=== PATIENT | female | born 1995 | race Caucasian/White ===

== ENCOUNTER 2017-02-08 02:04 | Inpatient (IN) | payer OTHER ==
[~2017-02-08] VITALS: Ht 160 cm; Wt 93.0 kg
[2017-02-08 07:31] VITALS: BP 122/83
--- NOTE | 2017-02-08 08:57 | Operative Report ---
Operative/Inv Procedure Report Surgery Date: 02/08/17 Name of Procedure: Primary low flap transverse section via Pfannenstiel skin incision Pre-Operative Diagnosis: Breech term Post-Operative Diagnosis: Same Estimated Blood Loss: 500 Surgeon/Ultrasound Technologist Sonographer: RISSA PETERSON,GUNNAR Govea Anesthesia: block Operative/Procedure Note Note: Procedure note patient was taken the operating room placed prone position after adequate anesthesia patient placed in dorsolithotomy position the vagina from dorsal fashion Sliva was placed patient was returned spine position the abdomen was checked for anesthesia that would be adequate for surgery by pinprick and found to be so the abdomen was prepped and draped so fashion through Pfannenstiel skin incision skin was cut was carried down to rectus fascia which was cut in curvilinear fashion I direction peritoneal cavity was entered high into the abdomen the low blade of the [place] was placed lower and incision the visceral peritoneum of uterus was dissected anteriorly a bladder flap was developed in the lower uterine segment uterus is nicked entered with the back of knife dissected bluntly as well as sharply on since removed from the field the infant was delivered by complete breech extraction the cord was doubly clamped and cut and was handed golf club weigher was waiting delivering to aid in resuscitation placenta was delivered manually noted to be intact was wiped clean with wet dry last insurance free of adherent membranes was oversewn running locking suture was indicated interrupted [id number] hemostasis was apparent intravenous [id number] were used for hemostasis uses returned to abdominal cavity found to be hemostatic the peritoneum was reapproximated using 2 over the fascia was reapproximated to continue sutures #1 skin was reapproximated david at the end the case the counts correct urine was clear mother and were transferred recovery room awake and alert with counts correct Findings: Complete breech male three-vessel cord clear fluid normal tubes and ovaries bilaterally
[2017-02-09 10:04] LABS: ABSOLUTE BASOPHIL COUNT 0 /CUMM (0.0-0.2); ABSOLUTE EOSINOPHIL COUNT 0.1 /CUMM (0.0-0.7); ABSOLUTE MONOCYTE COUNT 0.6 /CUMM (0.10-0.60); BASOPHIL % 0.3 % (0.0-2.0); RED BLOOD CELL CT 3.68 /CUMM (4.20-5.40)
--- NOTE | 2017-02-09 10:07 | PN- Post Delivery/GYN ---
Subjective Subjective: NO COMPLAINTS Objective Last 24 Hrs of Vital Signs/I&O VSS Physical Exam: PLEASANT WF IN NAD ABD SOFT NT INCISION CDI EXT -EDEMA -HOMANS Assessment/Plan Assessment/Plan ASSESS S/P C/P PLAN CONT PPC
[2017-02-09] MEDS ORDERED: IBUPROFEN800 M1 PO (10:08)
[2017-02-09] MEDS ORDERED: PERCOCET 5-3251 EACH PO (10:08)
[2017-02-09 10:11] LABS: ABSOLUTE GRANULOCYTE CT 5.4 /CUMM (1.4-6.5); ABSOLUTE LYMPH COUNT 2.1 /CUMM (1.2-3.4); MEAN CORPUSCULAR HGB CONC 33.1 G/DL (33.0-37.0); MEAN CORPUSCULAR VOLUME 75.6 FL (81.0-99.0); MEAN PLATELET VOLUME 7.9 FL (7.4-10.4); PLATELET COUNT 253 /CUMM (130-400); RBC DISTRIBUTION WIDTH 16.2 % (11.5-14.5); WHITE BLOOD CELL COUNT 8.2 /CUMM (4.8-10.8)
[2017-02-09 10:13] LABS: HEMATOCRIT 27.8 % (37-47)
--- NOTE | 2017-02-10 06:41 | PN- Post Delivery/GYN ---
Subjective Subjective: C/O PAIN +BM Objective Last 24 Hrs of Vital Signs/I&O PER PAPER CHART Physical Exam: PE PALE WF IN NAD ABD SOFT NT INCISION CDI LOCHIA MINIMAL EXT -EDEMA -HOMANS Assessment/Plan Assessment/Plan ASSESS S/P C/S FOR BREECH ANEMIA PLAN CONT PPC ADD IRON D/C IN AM
--- NOTE | 2017-02-11 10:01 | PN- Post Delivery/GYN ---
Subjective Subjective: Overall patient doing well. Pain is well controlled with PO meds. Patient is ambulating and tolerating PO well. +BM and voiding. Minimal lochia. well. Review of Systems: per above Objective Last 24 Hrs of Vital Signs/I&O 99.6 63 18 120/60 99% Physical Exam: Gen: NAD RRR S1 and S2 CTAB Abd: Minimal TTP. Good BS Inc: [place] in place C/D/I Ext: +1 pitting edema, no erythema or pain Current Medications: Current Medications Sig/Elizabet Start time Last Medication Dose Route Stop Time Status Admin Bisacodyl 10 MG DAILY NEEDED PRN 02/08 900 AC WA Diphenhydramine HCl 25 MG Q6P PRN 02/08 915 AC IV Diphenhydramine HCl 25 MG Q6P PRN 02/08 09 DC IV 02/11 09 Docusate Sodium 100 MG .STK-MED ONE 02/10 1928 DC PO 02/10 192 Docusate Sodium 100 MG AT BEDTIME PRN 02/08 0900 AC 02/10 PO 2000 Enoxaparin Sodium 40 MG 2000 02/09 2000 AC 02/10 SC 2001 Ferrous Sulfate 325 MG DAILY 02/10 1000 AC 02/10 PO 1051 Hydroxyzine HCl 50 MG AT BEDTIME NEED.. 02/09 0000 AC PO 02/12 0001 Ibuprofen 800 MG .STK-MED ONE 02/10 2006 DC PO 02/10 2007 Ibuprofen 800 MG .STK-MED ONE 02/10 1348 DC PO 02/10 1349 Ibuprofen 800 MG Q6P PRN 02/08 0900 AC 02/11 PO 0401 Influenza Virus 0.5 ML ONCE ONE 02/11 08 DC 02/11 Vaccine IM 02/11 0816 0940 Ketorolac 30 MG Q6P PRN 02/08 0915 DC Tromethamine IV 02/11 0916 Ketorolac 30 MG Q6P PRN 02/08 0915 DC Tromethamine IM 02/11 0916 Lactated Ringer's 1,000 ML Q8H 02/08 0900 AC 02/08 IV 0855 Magnesium Hydroxide 30 ML DAILY NEEDED PRN 02/08 09 DC PO 02/11 0901 Metoclopramide HCl 10 MG Q6P PRN 02/08 0915 AC IV Naloxone HCl 0.2 MG .EVERY 5 MINUTES PRN 02/08 915 AC IV Oxycodone/ 1 TAB Q4P PRN 02/08 09 AC 02/11 Acetaminophen PO 0401 Oxycodone/ 2 TAB Q4P PRN 02/08 900 AC Acetaminophen PO Senna 187 MG AT BEDTIME NEED.. 02/08 900 AC PO Tetanus/Reduced 0.5 ML ONCE ONE 02/11 815 DC 02/11 Diphtheria/Acell IM 02/12 816 0941 Pertussis Assessment/Plan Assessment/Plan POD#3 s/p LTCS for breech Overall doing well Continue PO pain meds and regular diet Ambulate Plan to discharge home this morning. Precautions given and voiced understanding. Attending MD Review Statement Attending Statement Attending MD Statement: examined this patient, discussed with family, discussed with nursing
--- NOTE | 2017-03-09 11:29 | Surgical Discharge Summary ---
Visit Information Visit Dates Admission Date: 02/08/17 Discharge Date: 02/11/17 History of Present Illness Chief Complaint: my baby is breech Medical History Influenza Vaccine: 02/11/17 Surgical History Pertinent Surgical History: none Psychosocial History What is Your Primary Language? Croatian Review of Systems: 13 point review of systems as stated in HPI Hospital Course Course Attending Physician: RISSA PETERSON,GUNNAR Govea Primary Care Physician: PATIENT HAS NO PRIMARY CARE DR Hospital Course: Patient presented to the hospital for breech primary section. She underwent a section she did well tolerated pain medication clear liquid diet first postoperative day she passed gas was advanced to regular diet she remained afebrile she tolerated oral pain medication urinating freely without these were Silva and on third postoperative day she was discharged home following physical exam pleasant white female HEENT anicteric lungs clear heart S1 and S2 abdomen soft incision clean dry and intact surgeries negative edema negative Homans Allergies: Coded Allergies: NO KNOWN ALLERGIES (UNKNOWN 02/08/17) Disposition Summary Disposition Principal Diagnosis: Test the low flap transverse section via Pfannenstiel skin incision for breech Additional Diagnosis: Anemia Discharge Disposition: home or self care Discharge Instructions General Discharge Information Code Status: Full Code Patient's Diet: ] RREGULAR Patient's Activity: Pelvic rest no heavy lifting greater than 15 pounds no driving for 2 weeks Follow-Up Instructions/Appts: Office in 2 weeks to david to be removed by the return nurses at the return visit Medications at Discharge Discharge Medications: Start taking the following new medications: Ibuprofen (Ibuprofen) 800 MG TABLET 800 Milligram ORAL EVERY SIX HOURS NEEDED as needed for UTERINE CRAMPING Qty = 30 No Refills Comments: Last Taken:02/11/17 Time:400 Oxycodone HCl/Acetaminophen (Percocet 5-325 MG Tablet) 5 MG-325 MG TABLET 1 Tablet ORAL EVERY 4 HOURS NEEDED as needed for PAIN SCALE 4-6 (MODERATE ) Qty = 30 No Refills Comments: Last Taken:02/11/17 Time:400
== END 2017-02-11 12:30 | DRG 540 ==
LOC: SDA 02:04 → GNO 11:21
PROVIDERS: ADMIT Specialist
PROC: 10D00Z1 Extraction of Products of Conception, Low, Open Approach (ICD-10-PCS; principal; 2017-02-08)
DX: O32.1XX0 Maternal care for breech presentation, not applicable or unspecified (principal); Z3A.39 39 weeks gestation of pregnancy; Z37.0 Single live birth; Z87.891 Personal history of nicotine dependence; O99.02 Anemia complicating childbirth
CPT/HCPCS: GNOS; 81001; 87086; J0690; J1650; J1885; J2274; J7120; Q2036